=== PATIENT | male | born 1945 | race African-American/Black ===

== ENCOUNTER 2018-05-15 12:28 | Inpatient (IN) ==
[2018-05-15 14:07] LABS: Eosinophils % 0.7 % (0.00-10.9); Hematocrit 47.1 VOL% (42.0-52.0); Hemoglobin 15.6 GM/DL (14.0-18.0); Immature Granulocytes % 1.4 %; Immature Granulocytes Absolute 0.06 #; Lymphocytes # 1.2 10*3/uL (1.4-4.0); Lymphocytes % 28.3 % (21.2-54.2); Mean Corpuscular HGB Conc 33.1 GM/DL (32-36); Mean Corpuscular Hemoglobin 30 PG (27-34); Mean Corpuscular Volume 89.5 FL (87-102); Mean Platelet Volume 11.2 FL (9.6-12.0); Monocytes # 0.5 10*3/uL (0.11-0.8); Monocytes % 12.2 % (1.7-12.7); Neutrophils # 2.4 10*3/uL (1.4-7.4); Neutrophils % 56.4 % (38.7-73.9); Platelet Count 170 T/CUMM (130-400); Red Blood Count 5.26 MC/CUMM (3.8-5.5); Red Cell Distribution Width 14.4 % (9.3-17.3); White Blood Count 4.2 T/CUMM (4-12)
[2018-05-15 14:14] LABS: INR 1.3; PT Patient Result 13.1 SECS; Partial Thromboplastin Time 27.6 SECS (0-40)
[2018-05-15 14:22] LABS: Albumin 3.9 G/DL (3.4-5.0); Bilirubin,Total 1.1 MG/DL (0.2-1.0); Calcium 9.1 MG/DL (8.5-10.1); Osmolality,Calculated 278.7 MOS/KG (273-304); Potassium 4.7 MMOL/L (3.5-5.1)
[2018-05-15 16:18] LABS: Apearance,Urine CLOUDY (Clear); Bacteria,Urine Occasional /HPF (Few); Bilirubin,Urine Negative (Negative); Blood, Urine Negative (Negative); Glucose,Urine (UA) Negative (Negative); Hyaline Casts,Urine 68 /LPF (0-3); Ketones,Urine Negative (Negative); Mucus,Urine Occasional /LPF (Occasional); Nitrite,Urine Negative (Negative); Protein,Urine 100 MG/DL; RBC,Urine 1 /HPF (0-4); Squamous Epithelial Cell,Urine Occasional /HPF (0-10); Urine Color Amber (Yellow); Urine Specific Gravity 1.013 (1.001-1.035); WBC,Urine 5 /HPF (0-6)
[2018-05-15] MEDS ORDERED: MAGNESIUM SULF RIDER 4 GM in PREMIX 1 EACH IV PRN (16:42)
[2018-05-15] MEDS ORDERED: ONDANSETRON 4 MG/2 ML VIAL IV PRN (16:42)
[2018-05-15] MEDS ORDERED: ZALEPLON 5 MG CAPSULE PO PRN (16:42)
[2018-05-15] MEDS ORDERED: GLUCAGON 1 MG VIAL IM PRN (16:42)
[2018-05-15] MEDS ORDERED: MAGNESIUM SULF RIDER 2 GM in PREMIX 1 EACH IV PRN (16:42)
[2018-05-15] MEDS ORDERED: DEXTROSE 50% 25 GM/50 ML VIAL IV PRN (16:42)
[2018-05-15] MEDS ORDERED: ALBUTEROL 2.5 MG/3 ML NEB RESP TX PRN (19:00)
[2018-05-15] MEDS: FUROSEMIDE 20 MG/2 ML VIAL IV SCH (21:16)
[2018-05-15] MEDS: FAMOTIDINE 20 MG TABLET PO SCH (21:16)
[2018-05-15] MEDS: METOPROLOL TARTRATE 25 MG TABLET PO SCH (21:16)
[2018-05-15] MEDS: INSULIN REGULAR 100 UNIT/ML SUBCUT SCH (21:17)
[2018-05-15] MEDS: ENOXAPARIN 40 MG/0.4 ML SYRINGE SUBCUT SCH (21:17)
[2018-05-16 04:29] LABS: Eosinophils % 0.8 % (0.00-10.9); Hematocrit 40.2 VOL% (42.0-52.0); Hemoglobin 13.3 GM/DL (14.0-18.0); Immature Granulocytes % 0.5 %; Immature Granulocytes Absolute 0.02 #; Lymphocytes # 1.7 10*3/uL (1.4-4.0); Lymphocytes % 41.8 % (21.2-54.2); Mean Corpuscular HGB Conc 33.1 GM/DL (32-36); Mean Corpuscular Hemoglobin 30 PG (27-34); Mean Corpuscular Volume 89.5 FL (87-102); Mean Platelet Volume 12.1 FL (9.6-12.0); Monocytes # 0.6 10*3/uL (0.11-0.8); Monocytes % 15.7 % (1.7-12.7); Neutrophils # 1.6 10*3/uL (1.4-7.4); Neutrophils % 40.2 % (38.7-73.9); Platelet Count 166 T/CUMM (130-400); Red Blood Count 4.49 MC/CUMM (3.8-5.5); Red Cell Distribution Width 14.4 % (9.3-17.3)
[2018-05-16 05:03] LABS: Albumin 3.3 G/DL (3.4-5.0); Bilirubin,Total 1.2 MG/DL (0.2-1.0); Osmolality,Calculated 277.5 MOS/KG (273-304)
[2018-05-16 05:08] LABS: Hypochromasia 1+; Lymphocytes 48 % (20-55); Platelet Estimate Normal; Segmented Neutrophils 35 % (50-85); Total Cells Counted 100
[2018-05-16 05:09] LABS: Atypical Lymphocytes Few
[2018-05-16] MEDS: INSULIN REGULAR 100 UNIT/ML SUBCUT SCH ×4 (08:44→20:56)
[2018-05-16] MEDS ORDERED: amLODIPine 10 MG TABLET PO SCH (09:00)
[2018-05-16] MEDS: POTASSIUM CHLORIDE 20 MEQ TABLET PO SCH (09:48)
[2018-05-16] MEDS: LOVASTATIN 20 MG TABLET PO SCH (09:48)
[2018-05-16] MEDS: METOPROLOL TARTRATE 25 MG TABLET PO SCH (09:48)
[2018-05-16] MEDS: PANTOPRAZOLE 40 MG TABLET PO SCH (09:48)
[2018-05-16] MEDS: ASPIRIN CHEW 81 MG TABLET PO SCH (09:48)
[2018-05-16] MEDS: FAMOTIDINE 20 MG TABLET PO SCH ×2 (09:48→21:41)
[2018-05-16] MEDS: FUROSEMIDE 20 MG/2 ML VIAL IV SCH ×2 (09:48→16:33)
[2018-05-16] MEDS: CETIRIZINE 10 MG TABLET PO SCH (09:49)
[2018-05-16] MEDS: MULTIVITAMIN (CENTRUM) TABLET PO SCH (09:49)
[2018-05-16] MEDS ORDERED: MAGNESIUM SULF RIDER 2 GM in PREMIX 1 EACH IV PRN (11:51)
[2018-05-16] MEDS ORDERED: diphenhydrAMINE CAP 25 MG CAPSULE PO ONE (11:51)
[2018-05-16] MEDS ORDERED: POTASSIUM CHLORIDE RIDER 10 MEQ in PREMIX 1 EACH IV PRN (11:51)
[2018-05-16] MEDS ORDERED: DIAZEPAM 5 MG TABLET PO ONE (11:51)
[2018-05-16] MEDS: SODIUM CHLORIDE 0.45% 1,000 ML IV SCH (12:13)
[2018-05-16] MEDS ORDERED: LIDOCAINE 1% 20 ML VIAL ONE (12:26)
[2018-05-16] MEDS ORDERED: MIDAZOLAM 2 MG/2 ML VIAL ONE (12:26)
[2018-05-16] MEDS ORDERED: NITROGLYCERIN DRIP 50 MG/250 ML BOTTLE IV ONE (12:26)
[2018-05-16] MEDS ORDERED: VERAPAMIL 5 MG/2 ML VIAL ONE (12:27)
[2018-05-16] MEDS ORDERED: fentaNYL 100 MCG/2 ML VIAL ONE (12:27)
[2018-05-16] MEDS ORDERED: HYDROmorphone 2 MG/1 ML VIAL ONE (12:35)
[2018-05-16] MEDS ORDERED: ENOXAPARIN 60 MG/0.6 ML SYRINGE ONE (12:47)
[2018-05-16] MEDS ORDERED: NITROGLYCERIN SL 0.4 MG TABLET SL PRN (12:59)
[2018-05-16] MEDS ORDERED: ACETAMINOPHEN 325 MG TABLET PO PRN (12:59)
[2018-05-16] MEDS: METOPROLOL SUCCINATE XL 25 MG TABLET PO SCH ×2 (13:57→21:41)
[2018-05-16] MEDS: ENOXAPARIN 40 MG/0.4 ML SYRINGE SUBCUT SCH (16:33)
[2018-05-16] MEDS ORDERED: LISINOPRIL 2.5 MG TABLET PO SCH (21:00)
[2018-05-16] MEDS: LOSARTAN 25 MG TABLET PO SCH (21:41)
[2018-05-17] MEDS: SODIUM CHLORIDE 0.45% 1,000 ML IV SCH (01:31)
[2018-05-17 05:28] LABS: Hematocrit 45.3 VOL% (42.0-52.0); Hemoglobin 14.9 GM/DL (14.0-18.0); Immature Granulocytes % 0.5 %; Immature Granulocytes Absolute 0.02 #; Lymphocytes # 1.4 10*3/uL (1.4-4.0); Lymphocytes % 35.1 % (21.2-54.2); Mean Corpuscular HGB Conc 32.9 GM/DL (32-36); Mean Corpuscular Hemoglobin 29 PG (27-34); Mean Corpuscular Volume 89.5 FL (87-102); Mean Platelet Volume 11.9 FL (9.6-12.0); Monocytes # 0.7 10*3/uL (0.11-0.8); Monocytes % 16.7 % (1.7-12.7); Neutrophils # 1.9 10*3/uL (1.4-7.4); Neutrophils % 45.7 % (38.7-73.9); Platelet Count 172 T/CUMM (130-400); Red Blood Count 5.06 MC/CUMM (3.8-5.5); Red Cell Distribution Width 14.5 % (9.3-17.3); White Blood Count 4.1 T/CUMM (4-12)
[2018-05-17 05:55] LABS: Osmolality,Calculated 275.8 MOS/KG (273-304); Potassium 4.4 MMOL/L (3.5-5.1)
[2018-05-17 05:56] LABS: Eosinophils 4 % (0-10); Hypochromasia 1+; Lymphocytes 40 % (20-55); Platelet Estimate Adequate; Segmented Neutrophils 47 % (50-85); Total Cells Counted 100
[2018-05-17 05:57] LABS: Atypical Lymphocytes Few
[2018-05-17] MEDS: FUROSEMIDE 20 MG/2 ML VIAL IV SCH (09:03)
[2018-05-17] MEDS: LOVASTATIN 20 MG TABLET PO SCH (09:06)
[2018-05-17] MEDS: POTASSIUM CHLORIDE 20 MEQ TABLET PO SCH (09:07)
[2018-05-17] MEDS: CETIRIZINE 10 MG TABLET PO SCH (09:07)
[2018-05-17] MEDS: METOPROLOL SUCCINATE XL 25 MG TABLET PO SCH (09:07)
[2018-05-17] MEDS: PANTOPRAZOLE 40 MG TABLET PO SCH (09:08)
[2018-05-17] MEDS: FAMOTIDINE 20 MG TABLET PO SCH (09:08)
[2018-05-17] MEDS: ASPIRIN CHEW 81 MG TABLET PO SCH (09:08)
[2018-05-17] MEDS: MULTIVITAMIN (CENTRUM) TABLET PO SCH (09:08)
[2018-05-17] MEDS ORDERED: SPIRONOLACTONE 25 MG TABLET PO SCH (10:30)
[2018-05-17 11:47] VITALS: BP 111/87
[2018-05-17] MEDS: LOSARTAN 25 MG TABLET PO SCH (12:17)
[2018-05-17] MEDS: INSULIN REGULAR 100 UNIT/ML SUBCUT SCH (12:18)
== END 2018-05-17 14:50 | disposition home or self-care (01) | DRG 287 ==
LOC: N.ED 12:28 → N.EDINP 16:42 → SUATTDRO 16:42 → N.TELES 17:48
PROVIDERS: ADMIT Internal Medicine; ATTEND Internal Medicine
PROC: CLCCHCL (ICD-10-PCS; 2018-05-16 12:45)

== ENCOUNTER 2019-02-18 14:10 | Inpatient (IN) ==
[2019-02-18 14:37] LABS: Basophils % 0.9 % (0.0-0.8); Eosinophils % 0.9 % (0.00-10.9); Hematocrit 42.9 VOL% (42.0-52.0); Hemoglobin 13.8 GM/DL (14.0-18.0); Immature Granulocytes % 0.3 %; Immature Granulocytes Absolute 0.01 #; Lymphocytes # 0.7 10*3/uL (1.4-4.0); Lymphocytes % 20.9 % (21.2-54.2); Mean Corpuscular HGB Conc 32.2 GM/DL (32-36); Mean Platelet Volume 11.6 FL (9.6-12.0); Monocytes % 12.2 % (1.7-12.7); Neutrophils % 64.8 % (38.7-73.9); Platelet Count 164 T/CUMM (130-400); Red Blood Count 5.05 MC/CUMM (3.8-5.5); Red Cell Distribution Width 20.1 % (9.3-17.3); White Blood Count 3.2 T/CUMM (4-12)
[2019-02-18 14:51] LABS: INR 1.2; PT Patient Result 13.5 SECS
[2019-02-18 15:03] LABS: Alanine Aminotransferase 18 U/L (16-61); Albumin 3.6 G/DL (3.4-5.0); Alkaline Phosphatase 70 U/L (45-117); Aspartate Amino Transferase 19 U/L (0-37); Blood Urea Nitrogen 19 MG/DL (7-18); Calcium 8.9 MG/DL (8.5-10.1); Glucose 120 MG/DL (74-106); Osmolality,Calculated 285.1 MOS/KG (273-304); Total Protein 6.8 G/DL (6.4-8.3); Troponin I < 0.015 NG/ML (0.00-0.045)
[2019-02-18] MEDS ORDERED: FUROSEMIDE 40 MG/4 ML VIAL IV STA (17:18)
[2019-02-18] MEDS ORDERED: ENOXAPARIN 30 MG/0.3 ML SYRINGE SUBCUT STA (17:26)
[2019-02-18] MEDS ORDERED: ASPIRIN CHEW 81 MG TABLET PO STA (17:26)
[2019-02-18] MEDS ORDERED: ENOXAPARIN 80 MG/0.8 ML SYRINGE SUBCUT ONE (17:42)
[2019-02-18] MEDS ORDERED: FUROSEMIDE 20 MG/2 ML VIAL ONE (17:43)
[2019-02-18] MEDS ORDERED: ONDANSETRON 4 MG/2 ML VIAL IV PRN (18:27)
[2019-02-18] MEDS ORDERED: ACETAMINOPHEN 325 MG TABLET PO PRN (18:27)
[2019-02-18] MEDS ORDERED: ALBUTEROL/IPRATROPIUM 3 ML NEB RESP TX PRN (18:42)
[2019-02-18] MEDS: METOPROLOL SUCCINATE XL 50 MG TABLET PO SCH (21:07)
[2019-02-18] MEDS: SACUBITRIL/VALSARTAN 49-51 MG TABLET PO SCH (21:07)
[2019-02-18 23:10] LABS: Apearance,Urine CLEAR (Clear); Bilirubin,Urine Negative (Negative); Blood, Urine Negative (Negative); Glucose,Urine (UA) Negative (Negative); Hyaline Casts,Urine 59 /LPF (0-3); Ketones,Urine Negative (Negative); Mucus,Urine Occasional /LPF (Occasional); Nitrite,Urine Negative (Negative); Protein,Urine Negative; RBC,Urine 1 /HPF (0-4); Squamous Epithelial Cell,Urine Occasional /HPF (0-10); Urine Color Yellow (Yellow); Urine Specific Gravity 1.008 (1.001-1.035); Urine Urobilinogen < 2.0 EU/DL (0.2-1.0); WBC,Urine 1 /HPF (0-6)
[2019-02-19 04:33] LABS: Basophils % 0.4 % (0.0-0.8); Eosinophils % 0.2 % (0.00-10.9); Hematocrit 40.9 VOL% (42.0-52.0); Hemoglobin 12.9 GM/DL (14.0-18.0); Immature Granulocytes % 0.2 %; Immature Granulocytes Absolute 0.01 #; Lymphocytes # 0.5 10*3/uL (1.4-4.0); Lymphocytes % 10.1 % (21.2-54.2); Mean Corpuscular HGB Conc 31.5 GM/DL (32-36); Mean Corpuscular Volume 84.2 FL (87-102); Mean Platelet Volume 11.9 FL (9.6-12.0); Monocytes % 9.9 % (1.7-12.7); Neutrophils % 79.2 % (38.7-73.9); Platelet Count 143 T/CUMM (130-400); Red Blood Count 4.86 MC/CUMM (3.8-5.5); Red Cell Distribution Width 19.6 % (9.3-17.3)
[2019-02-19 04:56] LABS: Calcium 9.1 MG/DL (8.5-10.1); Risk Ratio 2.22; Thyroid Stimulating Hormone 1.93 uIU/ml (0.358-3.74); VLDL CHOLESTEROL 14.4 MG/DL
[2019-02-19] MEDS: FUROSEMIDE 40 MG/4 ML VIAL IV SCH ×2 (08:54→16:56)
[2019-02-19] MEDS: METOPROLOL SUCCINATE XL 50 MG TABLET PO SCH ×2 (08:55→20:51)
[2019-02-19] MEDS: PANTOPRAZOLE 40 MG TABLET PO SCH (08:55)
[2019-02-19] MEDS: SACUBITRIL/VALSARTAN 49-51 MG TABLET PO SCH ×2 (08:55→20:51)
[2019-02-19] MEDS: POTASSIUM CHLORIDE 20 MEQ TABLET PO SCH (08:55)
[2019-02-19] MEDS: ASPIRIN EC 81 MG TABLET PO SCH (08:55)
[2019-02-19] MEDS: MULTIVITAMIN (CENTRUM) TABLET PO SCH (08:55)
[2019-02-19] MEDS: CETIRIZINE 10 MG TABLET PO SCH (08:55)
[2019-02-19] MEDS: SIMVASTATIN 20 MG TABLET PO SCH (16:57)
[2019-02-20 05:24] LABS: Basophils % 1.3 % (0.0-0.8); Eosinophils # 0.1 10*3/uL (0.0-0.87); Eosinophils % 1.9 % (0.00-10.9); Hematocrit 40.2 VOL% (42.0-52.0); Hemoglobin 13.4 GM/DL (14.0-18.0); Immature Granulocytes % 0.3 %; Immature Granulocytes Absolute 0.01 #; Lymphocytes # 0.8 10*3/uL (1.4-4.0); Lymphocytes % 25.7 % (21.2-54.2); Mean Corpuscular HGB Conc 33.3 GM/DL (32-36); Mean Corpuscular Volume 82.9 FL (87-102); Mean Platelet Volume 12.3 FL (9.6-12.0); Monocytes % 15.8 % (1.7-12.7); Platelet Count 120 T/CUMM (130-400); Red Blood Count 4.85 MC/CUMM (3.8-5.5); Red Cell Distribution Width 19.8 % (9.3-17.3); White Blood Count 3.1 T/CUMM (4-12)
[2019-02-20 05:39] LABS: Calcium 9.3 MG/DL (8.5-10.1); Osmolality,Calculated 284.1 MOS/KG (273-304)
[2019-02-20 05:50] LABS: Eosinophils 2 % (0-10); Hypochromasia Slight; Lymphocytes 28 % (20-55); Platelet Estimate Decreased; Polychromasia Few; Segmented Neutrophils 61 % (50-85); Total Cells Counted 100
[2019-02-20] MEDS: CETIRIZINE 10 MG TABLET PO SCH (08:32)
[2019-02-20] MEDS: ASPIRIN EC 81 MG TABLET PO SCH (08:32)
[2019-02-20] MEDS: PANTOPRAZOLE 40 MG TABLET PO SCH (08:32)
[2019-02-20] MEDS: SACUBITRIL/VALSARTAN 49-51 MG TABLET PO SCH ×2 (08:32→21:08)
[2019-02-20] MEDS: POTASSIUM CHLORIDE 20 MEQ TABLET PO SCH (08:32)
[2019-02-20] MEDS: FUROSEMIDE 40 MG/4 ML VIAL IV SCH ×2 (08:33→16:08)
[2019-02-20] MEDS: METOPROLOL SUCCINATE XL 50 MG TABLET PO SCH ×2 (08:33→21:08)
[2019-02-20] MEDS: MULTIVITAMIN (CENTRUM) TABLET PO SCH (08:33)
[2019-02-20] MEDS: SIMVASTATIN 20 MG TABLET PO SCH (16:07)
[2019-02-21] MEDS: FUROSEMIDE 40 MG/4 ML VIAL IV SCH ×2 (07:01→09:38)
[2019-02-21] MEDS: CETIRIZINE 10 MG TABLET PO SCH (09:38)
[2019-02-21] MEDS: SACUBITRIL/VALSARTAN 49-51 MG TABLET PO SCH ×2 (09:38→21:32)
[2019-02-21] MEDS: PANTOPRAZOLE 40 MG TABLET PO SCH (09:38)
[2019-02-21] MEDS: POTASSIUM CHLORIDE 20 MEQ TABLET PO SCH (09:38)
[2019-02-21] MEDS: METOPROLOL SUCCINATE XL 50 MG TABLET PO SCH ×2 (09:38→21:32)
[2019-02-21] MEDS: MULTIVITAMIN (CENTRUM) TABLET PO SCH (09:39)
[2019-02-21] MEDS: ASPIRIN EC 81 MG TABLET PO SCH (09:39)
[2019-02-21] MEDS ORDERED: MAGNESIUM CITRATE 300 ML BOTTLE PO ONE (12:21)
[2019-02-21] MEDS: POLYETHYLENE GLYCOL POWDER 17 GM PACK PO SCH (12:45)
[2019-02-21] MEDS: SIMVASTATIN 20 MG TABLET PO SCH (17:02)
[2019-02-22] MEDS: ASPIRIN EC 81 MG TABLET PO SCH (09:12)
[2019-02-22] MEDS: MULTIVITAMIN (CENTRUM) TABLET PO SCH (09:12)
[2019-02-22] MEDS: FUROSEMIDE 40 MG/4 ML VIAL IV SCH (09:12)
[2019-02-22] MEDS: POTASSIUM CHLORIDE 20 MEQ TABLET PO SCH (09:13)
[2019-02-22] MEDS: POLYETHYLENE GLYCOL POWDER 17 GM PACK PO SCH (09:13)
[2019-02-22] MEDS: METOPROLOL SUCCINATE XL 50 MG TABLET PO SCH (09:13)
[2019-02-22] MEDS: SACUBITRIL/VALSARTAN 49-51 MG TABLET PO SCH (09:13)
[2019-02-22] MEDS: CETIRIZINE 10 MG TABLET PO SCH (09:13)
[2019-02-22] MEDS: PANTOPRAZOLE 40 MG TABLET PO SCH (09:13)
[2019-02-22 12:32] VITALS: BP 106/80
== END 2019-02-22 12:18 | disposition home health service (06) | DRG 292 ==
LOC: N.ED 14:10 → N.EDINP 18:20 → N.TELEN 19:35
PROVIDERS: ADMIT Internal Medicine; ATTEND Internal Medicine

== ENCOUNTER 2019-05-05 12:47 | Inpatient (IN) ==
[2019-05-05 13:54] LABS: Basophils % 1.2 % (0.0-0.8); Eosinophils % 0.9 % (0.00-10.9); Hemoglobin 13.6 GM/DL (14.0-18.0); Immature Granulocytes % 0.3 %; Immature Granulocytes Absolute 0.01 #; Lymphocytes # 0.7 10*3/uL (1.4-4.0); Lymphocytes % 20.8 % (21.2-54.2); Mean Corpuscular HGB Conc 32.4 GM/DL (32-36); Mean Platelet Volume 11.5 FL (9.6-12.0); Monocytes % 10.1 % (1.7-12.7); Neutrophils % 66.7 % (38.7-73.9); Platelet Count 221 T/CUMM (130-400); Red Blood Count 4.83 MC/CUMM (3.8-5.5); Red Cell Distribution Width 18.1 % (9.3-17.3); White Blood Count 3.5 T/CUMM (4-12)
[2019-05-05 14:03] LABS: INR 1.2; PT Patient Result 12.5 SECS (9.6-12.2)
[2019-05-05 14:21] LABS: Albumin 3.9 G/DL (3.4-5.0); Bilirubin,Total 1.2 MG/DL (0.2-1.0); Calcium 9.3 MG/DL (8.5-10.1); Total Protein 7.2 G/DL (6.4-8.3)
[2019-05-05] MEDS ORDERED: FUROSEMIDE 40 MG/4 ML VIAL IV STA (16:51)
[2019-05-05] MEDS ORDERED: MAGNESIUM SULF RIDER 4 GM in PREMIX 1 EACH IV PRN (17:41)
[2019-05-05] MEDS ORDERED: ONDANSETRON 4 MG/2 ML VIAL IV PRN (17:41)
[2019-05-05] MEDS ORDERED: ACETAMINOPHEN 325 MG TABLET PO PRN (17:41)
[2019-05-05] MEDS ORDERED: MAGNESIUM SULF RIDER 2 GM in PREMIX 1 EACH IV PRN (17:41)
[2019-05-05] MEDS: SACUBITRIL/VALSARTAN 49-51 MG TABLET PO SCH (20:22)
[2019-05-05] MEDS: METOPROLOL SUCCINATE XL 100 MG TABLET PO SCH (20:22)
[2019-05-05] MEDS: FUROSEMIDE 40 MG/4 ML VIAL IV SCH (20:24)
[2019-05-05 20:26] LABS: Hepatitis B Core IgM Quant 0.37 Index; Hepatitis B Surface Ag Quant 0.13 Index; Hepatitis B Surface Ag Result Negative (Negative); Hepatitis C Virus Ab Quant 0.08 Index; Hepatitis C Virus Ab Result Negative (Negative)
[2019-05-05] MEDS ORDERED: RANITIDINE 150 MG TABLET PO SCH (21:00)
[2019-05-06 05:25] LABS: Basophils % 0.9 % (0.0-0.8); Eosinophils # 0.1 10*3/uL (0.0-0.87); Eosinophils % 1.9 % (0.00-10.9); Hematocrit 38.8 VOL% (42.0-52.0); Hemoglobin 12.6 GM/DL (14.0-18.0); Immature Granulocytes % 0.3 %; Immature Granulocytes Absolute 0.01 #; Lymphocytes # 0.8 10*3/uL (1.4-4.0); Lymphocytes % 25.3 % (21.2-54.2); Mean Corpuscular HGB Conc 32.5 GM/DL (32-36); Mean Corpuscular Volume 86.6 FL (87-102); Monocytes % 16.7 % (1.7-12.7); Neutrophils % 54.9 % (38.7-73.9); Platelet Count 189 T/CUMM (130-400); Red Blood Count 4.48 MC/CUMM (3.8-5.5); Red Cell Distribution Width 17.8 % (9.3-17.3); White Blood Count 3.2 T/CUMM (4-12)
[2019-05-06 06:11] LABS: Albumin 3.2 G/DL (3.4-5.0); Bilirubin,Total 1.4 MG/DL (0.2-1.0); Calcium 8.8 MG/DL (8.5-10.1); Osmolality,Calculated 288.7 MOS/KG (273-304); Total Protein 6.4 G/DL (6.4-8.3)
[2019-05-06 06:38] LABS: Band Neutrophils 2 % (0-10); Eosinophils 1 % (0-10); Lymphocytes 27 % (20-55); Segmented Neutrophils 60 % (50-85); Total Cells Counted 100
[2019-05-06 06:40] LABS: Anisocytosis Slight; Hypochromasia Slight; Target Cells Slight
[2019-05-06 06:41] LABS: Platelet Estimate Normal
[2019-05-06] MEDS: SACUBITRIL/VALSARTAN 49-51 MG TABLET PO SCH ×2 (09:03→20:33)
[2019-05-06] MEDS: METOPROLOL SUCCINATE XL 100 MG TABLET PO SCH ×2 (09:03→20:33)
[2019-05-06] MEDS: CETIRIZINE 10 MG TABLET PO SCH (09:03)
[2019-05-06] MEDS: FUROSEMIDE 40 MG/4 ML VIAL IV SCH ×2 (09:04→16:17)
[2019-05-06] MEDS: MULTIVITAMIN (CENTRUM) TABLET PO SCH (09:04)
[2019-05-06] MEDS: PANTOPRAZOLE 40 MG TABLET PO SCH (09:04)
[2019-05-06] MEDS ORDERED: SIMVASTATIN 20 MG TABLET PO SCH (16:30)
[2019-05-06] MEDS ORDERED: FUROSEMIDE 40 MG/4 ML VIAL IV SCH (19:16)
[2019-05-07] MEDS ORDERED: ALBUMIN 25% 12.5 GM in PREMIX 1 EACH IV ONE (09:59)
[2019-05-07] MEDS ORDERED: ALBUMIN 25% 12.5 GM/50 ML VIAL IV ONE (10:01)
[2019-05-07] MEDS: CETIRIZINE 10 MG TABLET PO SCH (11:10)
[2019-05-07] MEDS: PANTOPRAZOLE 40 MG TABLET PO SCH (11:10)
[2019-05-07] MEDS: SACUBITRIL/VALSARTAN 49-51 MG TABLET PO SCH (11:10)
[2019-05-07] MEDS: METOPROLOL SUCCINATE XL 100 MG TABLET PO SCH (11:10)
[2019-05-07] MEDS: MULTIVITAMIN (CENTRUM) TABLET PO SCH (11:10)
[2019-05-07 11:46] VITALS: BP 107/78
[2019-05-07 11:55] LABS: Neutrophils,Peritoneal Fluid 2 %; RBC,Peritoneal Fluid < 1 T/CUMM
== END 2019-05-07 14:52 | disposition home or self-care (01) | DRG 433 ==
LOC: N.EDINP 12:47 → N.ED 12:47 → SUATTDRO 17:41 → N.EDINP 18:18 → N.4E 18:26
PROVIDERS: ADMIT Phlebology; ATTEND Hospitalist

== ENCOUNTER 2020-04-12 20:21 | Observation (INO) ==
[2020-04-12 21:38] LABS: Hematocrit 50.5 VOL% (42.0-52.0); Hemoglobin 16.6 GM/DL (14.0-18.0); Immature Granulocytes % 0.3 %; Immature Granulocytes Absolute 0.01 #; Lymphocytes # 1.4 10*3/uL (1.4-4.0); Lymphocytes % 36.5 % (21.2-54.2); Mean Corpuscular HGB Conc 32.9 GM/DL (32-36); Mean Corpuscular Volume 86.5 FL (87-102); Mean Platelet Volume 12.4 FL (9.6-12.0); Monocytes % 11.7 % (1.7-12.7); Neutrophils % 49.5 % (38.7-73.9); Platelet Count 198 T/CUMM (130-400); Red Blood Count 5.84 MC/CUMM (3.8-5.5); Red Cell Distribution Width 21.4 % (9.3-17.3); White Blood Count 3.8 T/CUMM (4-12)
[2020-04-12 21:46] LABS: Albumin 3.9 G/DL (3.4-5.0); Bilirubin,Total 3.5 MG/DL (0.2-1.0); Calcium 9.1 MG/DL (8.5-10.1); Osmolality,Calculated 277.8 MOS/KG (273-304); Total Protein 7.5 G/DL (6.4-8.3)
[2020-04-12 21:47] LABS: Ferritin 253.9 ng/ml (26-388)
[2020-04-12 21:54] LABS: INR 1.4; PT Patient Result 15.1 SECS (9.8-11.9)
[2020-04-12] MEDS ORDERED: ONDANSETRON 4 MG/2 ML VIAL IV PRN (23:37)
[2020-04-12] MEDS ORDERED: DOCUSATE SODIUM 100 MG CAPSULE PO PRN (23:37)
[2020-04-12] MEDS ORDERED: ACETAMINOPHEN 325 MG TABLET PO PRN (23:37)
[2020-04-13] MEDS ORDERED: ENOXAPARIN 80 MG/0.8 ML SYRINGE SUBCUT SCH (00:30)
[2020-04-13 06:35] LABS: Eosinophils % 0.3 % (0.00-10.9); Hematocrit 44.3 VOL% (42.0-52.0); Hemoglobin 15.2 GM/DL (14.0-18.0); Immature Granulocytes % 0.3 %; Immature Granulocytes Absolute 0.01 #; Lymphocytes % 33.1 % (21.2-54.2); Mean Corpuscular HGB Conc 34.3 GM/DL (32-36); Mean Corpuscular Volume 84.5 FL (87-102); Mean Platelet Volume 12.4 FL (9.6-12.0); Monocytes % 13.4 % (1.7-12.7); Neutrophils % 51.9 % (38.7-73.9); Platelet Count 157 T/CUMM (130-400); Red Blood Count 5.24 MC/CUMM (3.8-5.5); Red Cell Distribution Width 20.7 % (9.3-17.3); White Blood Count 3.1 T/CUMM (4-12)
[2020-04-13 06:48] LABS: Calcium 9.3 MG/DL (8.5-10.1); Osmolality,Calculated 282.3 MOS/KG (273-304)
[2020-04-13 07:00] LABS: Platelet Estimate Normal
[2020-04-13 07:01] LABS: Anisocytosis 2+; Burr Cells 1+; Macrocytosis 1+; Target Cells Few
[2020-04-13] MEDS: FUROSEMIDE 40 MG TABLET PO SCH (09:05)
[2020-04-13] MEDS: CETIRIZINE 10 MG TABLET PO SCH (09:05)
[2020-04-13] MEDS: METOPROLOL SUCCINATE XL 100 MG TABLET PO SCH ×2 (09:05→20:22)
[2020-04-13] MEDS: MAGNESIUM OXIDE 400 MG TABLET PO SCH ×2 (09:05→20:21)
[2020-04-13] MEDS: PANTOPRAZOLE 40 MG TABLET PO SCH ×2 (09:05→20:22)
[2020-04-13] MEDS: POTASSIUM CHLORIDE 20 MEQ TABLET PO PRN ×4 (09:47→17:51)
[2020-04-13] MEDS: ASPIRIN EC 81 MG TABLET PO SCH (10:01)
[2020-04-13] MEDS: Sacubitril-Valsartan [Entresto] 1 TABLET PO SCH ×2 (10:01→20:22)
[2020-04-13] MEDS: SIMVASTATIN 20 MG TABLET PO SCH (17:00)
[2020-04-14 09:59] LABS: Basophils # 0.1 10*3/uL (0.0-0.2); Basophils % 1.5 % (0.0-0.8); Eosinophils % 0.6 % (0.00-10.9); Hematocrit 48.1 VOL% (42.0-52.0); Hemoglobin 16.2 GM/DL (14.0-18.0); Immature Granulocytes % 0.3 %; Immature Granulocytes Absolute 0.01 #; Lymphocytes # 1.3 10*3/uL (1.4-4.0); Lymphocytes % 37.3 % (21.2-54.2); Mean Corpuscular HGB Conc 33.7 GM/DL (32-36); Mean Corpuscular Volume 85.7 FL (87-102); Mean Platelet Volume 12.6 FL (9.6-12.0); Monocytes % 17.8 % (1.7-12.7); Neutrophils % 42.5 % (38.7-73.9); Platelet Count 163 T/CUMM (130-400); Red Blood Count 5.61 MC/CUMM (3.8-5.5); Red Cell Distribution Width 21.2 % (9.3-17.3); White Blood Count 3.4 T/CUMM (4-12)
[2020-04-14 10:05] LABS: Calcium 9.6 MG/DL (8.5-10.1); Osmolality,Calculated 282.3 MOS/KG (273-304)
[2020-04-14] MEDS: MAGNESIUM OXIDE 400 MG TABLET PO SCH ×2 (10:33→23:04)
[2020-04-14] MEDS: ASPIRIN EC 81 MG TABLET PO SCH (10:33)
[2020-04-14] MEDS: METOPROLOL SUCCINATE XL 100 MG TABLET PO SCH ×2 (10:34→23:05)
[2020-04-14] MEDS: FUROSEMIDE 40 MG TABLET PO SCH (10:34)
[2020-04-14] MEDS: PANTOPRAZOLE 40 MG TABLET PO SCH ×2 (10:34→23:05)
[2020-04-14] MEDS: CETIRIZINE 10 MG TABLET PO SCH (10:35)
[2020-04-14] MEDS: Sacubitril-Valsartan [Entresto] 1 TABLET PO SCH ×2 (10:39→23:05)
[2020-04-14 11:12] LABS: Anisocytosis 2+; Burr Cells 1+; Eosinophils 1 % (0-10); Lymphocytes 32 % (20-55); Macrocytosis 1+; Platelet Estimate Normal; Segmented Neutrophils 56 % (50-85); Smudge Cells Few; Total Cells Counted 100
[2020-04-14 11:13] LABS: Poikilocytosis 1+
[2020-04-14 11:39] LABS: Total Protein,Body Fluid 3.5 G/DL
[2020-04-14 12:04] LABS: Neutrophils,Peritoneal Fluid 4 %; RBC,Peritoneal Fluid 580 T/CUMM
[2020-04-14] MEDS: SIMVASTATIN 20 MG TABLET PO SCH (15:31)
[2020-04-15 06:22] LABS: Basophils % 1.4 % (0.0-0.8); Eosinophils % 1.4 % (0.00-10.9); Hematocrit 46.5 VOL% (42.0-52.0); Hemoglobin 15.6 GM/DL (14.0-18.0); Immature Granulocytes Absolute 0.03 #; Lymphocytes # 1.4 10*3/uL (1.4-4.0); Lymphocytes % 46.1 % (21.2-54.2); Mean Corpuscular HGB Conc 33.5 GM/DL (32-36); Mean Corpuscular Volume 86.3 FL (87-102); Mean Platelet Volume 12.6 FL (9.6-12.0); Monocytes % 16.4 % (1.7-12.7); Neutrophils % 33.7 % (38.7-73.9); Platelet Count 133 T/CUMM (130-400); Red Blood Count 5.39 MC/CUMM (3.8-5.5); Red Cell Distribution Width 21.3 % (9.3-17.3); White Blood Count 2.9 T/CUMM (4-12)
[2020-04-15 06:42] LABS: Eosinophils 2 % (0-10); Lymphocytes 38 % (20-55); Platelet Estimate Normal; Segmented Neutrophils 41 % (50-85); Total Cells Counted 100
[2020-04-15 06:43] LABS: Macrocytosis Slight
[2020-04-15 06:50] LABS: Calcium 8.8 MG/DL (8.5-10.1); Osmolality,Calculated 281.4 MOS/KG (273-304)
[2020-04-15 08:38] VITALS: BP 125/51
[2020-04-15] MEDS: MAGNESIUM OXIDE 400 MG TABLET PO SCH (09:41)
[2020-04-15] MEDS: CETIRIZINE 10 MG TABLET PO SCH (09:42)
[2020-04-15] MEDS: PANTOPRAZOLE 40 MG TABLET PO SCH (09:42)
[2020-04-15] MEDS: METOPROLOL SUCCINATE XL 100 MG TABLET PO SCH (09:42)
[2020-04-15] MEDS: FUROSEMIDE 40 MG TABLET PO SCH (09:42)
[2020-04-15] MEDS: ASPIRIN EC 81 MG TABLET PO SCH (09:42)
[2020-04-15] MEDS: Sacubitril-Valsartan [Entresto] 1 TABLET PO SCH (10:13)
== END 2020-04-15 11:02 | disposition home or self-care (01) ==
LOC: N.ED 20:21 → N.EDINP 23:38 → INTOOBSV 23:38 → N.TELEN 04-13 00:16
PROVIDERS: ADMIT Family Medicine; ATTEND Family Medicine

== ENCOUNTER 2020-05-09 21:30 | Observation (INO) ==
[2020-05-09 22:03] LABS: Basophils % 0.9 % (0.0-0.8); Eosinophils % 0.7 % (0.00-10.9); Hematocrit 50.4 VOL% (42.0-52.0); Hemoglobin 16.6 GM/DL (14.0-18.0); Immature Granulocytes % 0.7 %; Immature Granulocytes Absolute 0.03 #; Lymphocytes # 1.6 10*3/uL (1.4-4.0); Lymphocytes % 35.4 % (21.2-54.2); Mean Corpuscular HGB Conc 32.9 GM/DL (32-36); Mean Corpuscular Volume 88.6 FL (87-102); Mean Platelet Volume 11.9 FL (9.6-12.0); Monocytes % 13.5 % (1.7-12.7); Neutrophils % 48.8 % (38.7-73.9); Platelet Count 205 T/CUMM (130-400); Red Blood Count 5.69 MC/CUMM (3.8-5.5); Red Cell Distribution Width 20.7 % (9.3-17.3); White Blood Count 4.4 T/CUMM (4-12)
[2020-05-09 22:23] LABS: Albumin 3.9 G/DL (3.4-5.0); Bilirubin,Total 2.7 MG/DL (0.2-1.0); Calcium 9.3 MG/DL (8.5-10.1); Osmolality,Calculated 282.3 MOS/KG (273-304); Total Protein 7.6 G/DL (6.4-8.3)
[2020-05-09 22:28] LABS: INR 1.3
[2020-05-09] MEDS ORDERED: DOCUSATE SODIUM 100 MG CAPSULE PO PRN (22:56)
[2020-05-09] MEDS ORDERED: hydrALAZINE 20 MG/1 ML VIAL IV PRN (22:56)
[2020-05-09] MEDS ORDERED: diphenhydrAMINE CAP 25 MG CAPSULE PO PRN (22:56)
[2020-05-09] MEDS ORDERED: PROMETHAZINE 25 MG/1 ML VIAL IM PRN (22:56)
[2020-05-09] MEDS ORDERED: guaiFENesin/DM ER 600-30 MG TABLET PO PRN (22:56)
[2020-05-09] MEDS ORDERED: DEXTROSE 50% 25 GM/50 ML VIAL IV PRN (22:56)
[2020-05-09] MEDS ORDERED: GLUCAGON 1 MG VIAL IM PRN (22:56)
[2020-05-09] MEDS ORDERED: ACETAMINOPHEN 325 MG TABLET PO PRN (22:56)
[2020-05-09] MEDS ORDERED: ZALEPLON 5 MG CAPSULE PO PRN (22:56)
[2020-05-09] MEDS ORDERED: ONDANSETRON 4 MG/2 ML VIAL IV PRN (22:56)
[2020-05-09] MEDS ORDERED: NICOTINE 21 MG/24 HR PATCH TRANSDERM PRN (22:56)
[2020-05-09] MEDS ORDERED: MORPHINE 4 MG/1 ML VIAL IV PRN (22:56)
[2020-05-09] MEDS ORDERED: FUROSEMIDE 40 MG/4 ML VIAL IV ONE (22:59)
[2020-05-10 05:42] LABS: Immature Granulocytes % 0.3 %; Immature Granulocytes Absolute 0.01 #
[2020-05-10 05:57] LABS: Lymphocytes # 0.9 10*3/uL (1.4-4.0); Lymphocytes % 30.2 % (21.2-54.2); Mean Corpuscular HGB Conc 34.6 GM/DL (32-36); Mean Corpuscular Volume 86.1 FL (87-102); Mean Platelet Volume 11.7 FL (9.6-12.0); Monocytes % 14.4 % (1.7-12.7); Neutrophils % 53.1 % (38.7-73.9); Platelet Count 167 T/CUMM (130-400); Red Blood Count 4.76 MC/CUMM (3.8-5.5); Red Cell Distribution Width 19.5 % (9.3-17.3); White Blood Count 2.9 T/CUMM (4-12)
[2020-05-10 05:59] LABS: Hemoglobin 14.2 GM/DL (14.0-18.0)
[2020-05-10 06:05] LABS: Calcium 9.3 MG/DL (8.5-10.1); Osmolality,Calculated 283.1 MOS/KG (273-304)
[2020-05-10 06:44] LABS: Eosinophils 1 % (0-10); Lymphocytes 22 % (20-55); Platelet Estimate Normal; Segmented Neutrophils 69 % (50-85); Total Cells Counted 100
[2020-05-10] MEDS: INSULIN LISPRO 100 UNIT/ML SUBCUT SCH ×4 (07:44→21:06)
[2020-05-10] MEDS: FUROSEMIDE 40 MG TABLET PO SCH (09:56)
[2020-05-10] MEDS: METOPROLOL SUCCINATE XL 100 MG TABLET PO SCH (09:56)
[2020-05-10] MEDS: ENOXAPARIN 40 MG/0.4 ML SYRINGE SUBCUT SCH (09:56)
[2020-05-10] MEDS: SACUBITRIL/VALSARTAN 49-51 MG TABLET PO SCH ×2 (09:56→20:14)
[2020-05-10] MEDS: MAGNESIUM OXIDE 400 MG TABLET PO SCH ×2 (09:56→20:14)
[2020-05-10] MEDS: CETIRIZINE 10 MG TABLET PO SCH (09:57)
[2020-05-10] MEDS: SIMVASTATIN 20 MG TABLET PO SCH (17:35)
[2020-05-10] MEDS ORDERED: POTASSIUM CHLORIDE 20 MEQ TABLET PO ONE (17:55)
[2020-05-11] MEDS: INSULIN LISPRO 100 UNIT/ML SUBCUT SCH ×4 (07:37→22:53)
[2020-05-11] MEDS: SACUBITRIL/VALSARTAN 49-51 MG TABLET PO SCH ×2 (08:12→21:49)
[2020-05-11] MEDS: METOPROLOL SUCCINATE XL 100 MG TABLET PO SCH (08:12)
[2020-05-11] MEDS: CETIRIZINE 10 MG TABLET PO SCH (08:12)
[2020-05-11] MEDS: ENOXAPARIN 40 MG/0.4 ML SYRINGE SUBCUT SCH (08:12)
[2020-05-11] MEDS: MAGNESIUM OXIDE 400 MG TABLET PO SCH ×2 (08:13→21:49)
[2020-05-11] MEDS: FUROSEMIDE 40 MG TABLET PO SCH (08:13)
[2020-05-11 08:28] LABS: Basophils % 1.2 % (0.0-0.8); Eosinophils % 0.6 % (0.00-10.9); Hematocrit 42.7 VOL% (42.0-52.0); Hemoglobin 14.5 GM/DL (14.0-18.0); Immature Granulocytes % 0.6 %; Immature Granulocytes Absolute 0.02 #; Lymphocytes # 1.1 10*3/uL (1.4-4.0); Lymphocytes % 35.2 % (21.2-54.2); Mean Corpuscular Volume 87.7 FL (87-102); Mean Platelet Volume 11.3 FL (9.6-12.0); Monocytes % 16.2 % (1.7-12.7); Neutrophils % 46.2 % (38.7-73.9); Platelet Count 188 T/CUMM (130-400); Red Blood Count 4.87 MC/CUMM (3.8-5.5); Red Cell Distribution Width 19.9 % (9.3-17.3); White Blood Count 3.2 T/CUMM (4-12)
[2020-05-11 08:50] LABS: INR 1.4; PT Patient Result 14.4 SECS (9.8-11.9)
[2020-05-11 08:53] LABS: Calcium 9.1 MG/DL (8.5-10.1); Osmolality,Calculated 280.4 MOS/KG (273-304)
[2020-05-11 09:23] LABS: Hypochromasia 1+; Lymphocytes 31 % (20-55); Nucleated Red Blood Cells 2 (0-5); Platelet Estimate Adequate; Segmented Neutrophils 53 % (50-85); Total Cells Counted 100
[2020-05-11 09:24] LABS: Ovalocytes Slight
[2020-05-11] MEDS ORDERED: POLYETHYLENE GLYCOL POWDER 17 GM PACK PO PRN (12:48)
[2020-05-11] MEDS: SIMVASTATIN 20 MG TABLET PO SCH (17:11)
[2020-05-12 05:48] LABS: Basophils % 1.3 % (0.0-0.8); Hematocrit 42.4 VOL% (42.0-52.0); Hemoglobin 14.1 GM/DL (14.0-18.0); Immature Granulocytes % 0.3 %; Immature Granulocytes Absolute 0.01 #; Lymphocytes # 1.2 10*3/uL (1.4-4.0); Lymphocytes % 38.6 % (21.2-54.2); Mean Corpuscular HGB Conc 33.3 GM/DL (32-36); Mean Corpuscular Volume 87.4 FL (87-102); Mean Platelet Volume 12.2 FL (9.6-12.0); Monocytes % 16.2 % (1.7-12.7); Neutrophils % 42.6 % (38.7-73.9); Platelet Count 199 T/CUMM (130-400); Red Blood Count 4.85 MC/CUMM (3.8-5.5); Red Cell Distribution Width 19.8 % (9.3-17.3)
[2020-05-12 06:08] LABS: Calcium 8.9 MG/DL (8.5-10.1); Osmolality,Calculated 281.4 MOS/KG (273-304)
[2020-05-12 06:19] LABS: Eosinophils 2 % (0-10); Lymphocytes 37 % (20-55); Myelocytes 1 %; Segmented Neutrophils 52 % (50-85); Total Cells Counted 100
[2020-05-12 06:20] LABS: Acanthocytes Few; Hypochromasia 1+; Microcytosis 1+; Ovalocytes Slight; Target Cells Few
[2020-05-12 06:21] LABS: Platelet Estimate Adequate
[2020-05-12] MEDS: INSULIN LISPRO 100 UNIT/ML SUBCUT SCH ×2 (07:42→12:03)
[2020-05-12] MEDS: CETIRIZINE 10 MG TABLET PO SCH (10:00)
[2020-05-12] MEDS: FUROSEMIDE 40 MG TABLET PO SCH (10:00)
[2020-05-12] MEDS: MAGNESIUM OXIDE 400 MG TABLET PO SCH (10:00)
[2020-05-12] MEDS: METOPROLOL SUCCINATE XL 100 MG TABLET PO SCH (10:07)
[2020-05-12] MEDS: SACUBITRIL/VALSARTAN 49-51 MG TABLET PO SCH (10:07)
[2020-05-12 11:25] VITALS: BP 99/73
== END 2020-05-12 12:53 | disposition home or self-care (01) ==
LOC: N.ED 21:30 → N.EDINP 21:30 → SUATTDRO 22:56 → N.3E 23:08
PROVIDERS: ADMIT Hospitalist; ATTEND Family Medicine